=== PATIENT | female | born 2000 | race Caucasian/White ===

== ENCOUNTER 2024-06-21 14:37 | Outpatient (CLI) | payer OTHER, SELFPAY ==
[2024-06-28 08:04] LABS: Progesterone 12.4 ng/mL
== END 2024-06-21 14:38 | disposition home or self-care (01) ==
PROVIDERS: Visit Provider Obstetrics & Gynecology
DX: O20.0 Threatened abortion (principal); Z3A.00 Weeks of gestation of pregnancy not specified
CPT/HCPCS: 36415; 84144; 84702

== ENCOUNTER 2024-06-23 09:30 | Outpatient (RCR) | payer OTHER, SELFPAY | END 2024-09-17 23:59 | disposition home or self-care (01) | LOC: ANHLAB 09:30 | PROVIDERS: Visit Provider Obstetrics & Gynecology | DX: O20.0 Threatened abortion (principal) | CPT/HCPCS: 36415; 84702; 85461; 86850; 86900; 86901 ==